=== PATIENT | female | born 1950 | race Caucasian/White ===

== ENCOUNTER 2016-07-27 11:01 | Inpatient (IN) | payer MEDICARE, OTHER ==
[2016-07-20 08:22] VITALS: BMI 31.0
[~2016-07-27] VITALS: Ht 149.9 cm; Wt 70.9 kg
[2016-07-27] VITALS (9 sets, daily range): BP systolic 156–195; BP diastolic 77–85; PULSE 58–74; TEMP 36.4–36.8; O2SAT 93–99; Ht 149.9 cm; Wt 70.9 kg
--- NOTE | 2016-07-27 07:32 | History & Physical Bridge Note ---
H&P Re-Evaluation Bridge Note: I have examined the patient, reviewed the History & Physical and in the interval since the performance of the History & Physical I have noted the following changes of clinical significance: No changes noted
--- NOTE | 2016-07-27 07:33 | History and Physical ---
History & Physical Date Jul 27, 2016. Chief Complaint back and leg pain History of Present Illness The patient is a 65 year old female with complaints of Additional History Hepatic Disease: No Endocrine Disorder: No Kidney Disease: No Hypertension: No Heart Disease: No Bleeding Tendencies: No Infectious Diseases: No Allergies Coded Allergies: Adhesives (Unverified Allergy, Unknown, REDNESS, 07/20/16) Aspirin (Unverified Allergy, Unknown, GI UPSET, 07/20/16) Caffeine (Unverified Allergy, Unknown, FLYING PILI HIGH, 07/20/16) Codeine (Unverified Allergy, Unknown, MILD NAUSEA FUNNY FEELING, 07/20/16) Corticosteroids (Unverified Allergy, Unknown, DIZZY, NAUSEA AND VOMITING, 07/20/16) Indomethacin (Unverified Allergy, Unknown, NAUSE AND VOMITING, 07/20/16) Iodinated Diagnostic Agents (Unverified Allergy, Unknown, FACIAL HIVES AND MILD SWELLING, 07/20/16) Metformin (Unverified Allergy, Unknown, DIARRHEA, 07/20/16) NSAIDs (Verified Allergy, Unknown, GI upset, 07/20/16) Nitrofurantoin (Unverified Allergy, Unknown, RASH, 07/20/16) Sulfa Antibiotics (Unverified Allergy, Unknown, UNKNOWN, 07/20/16) Home Medications Scheduled Clobetasol Propionate (Clobetasol Propionate), 1 APPLN TOP BID Cyanocobalamin (Vitamin B12 500MCG), 1,000 MCG PO QAM Levothyroxine Sodium (Levothyroxine Sodium), 1 TAB PO QAM Lisinopril (Zestril), 20 MG PO QAM Lisinopril (Prinivil), 10 MG PO QPM Metoprolol Succ (Toprol Xl) (Toprol-Xl ), 100 MG PO QAM Pantoprazole (Protonix), 40 MG PO QAM Vitamin E (Vitamin E), 400 UNITS PO BID [Estradiol], 1 DOSE TOP WKLY Scheduled PRN Fluticasone Propionate (Nasal) (Flonase Allergy Relief), 1 SPRAY KALEIGH BID PRN for PRN Tramadol (Ultram), 50 MG PO Q6H PRN for RN Triamcinolone Acet (Triamcinolone Acetonide), 1 APPLN TOP DAILY PRN for RN Physical Examination Skin: warm/dry, no rash Eyes: normal inspection, EOMI, sclerae normal ENT: normal ENT inspection, pharynx normal Head: normocephalic, atraumatic Neck: supple, no adenopathy, trachea midline Respiratory/Chest: lungs clear, normal breath sounds, no respiratory distress Cardiovascular: regular rate, rhythm, no edema, no murmur Abdomen / GI: normal bowel sounds, non tender Back: normal inspection Extremities: normal inspection, normal range of motion Neurologic/Psych: no motor/sensory deficits, alert, normal reflexes, oriented x 3 Diagnosis spinal stenosis Plan of Treatment decompression fusion L2-S1
[~2016-07-27 11:01] MED LIST: CEFAZOLIN 1000MG/55 ML D5W IV SCH; CLBPO15 TOP; CYAN500T13 PO; DC PCA ONE; ESTRADIOL TOP; FLUT0.15 NAE; LACTATED RINGER'S 1000ML 1,000 ML IV SCH; LEVO75TA5 PO; LISI-725 PO; LISI10TA PO; METO1TAB69 PO; PANT1TAB48 PO; TRAM-10 PO; TRMCR515 TOP; VITA1TAB4 PO
[2016-07-27] MEDS ORDERED: MIDAZOLAM HCL 1 MG/ML 2ML VIAL ONE (11:07)
[2016-07-27] MEDS ORDERED: FENTANYL CITRATE INJ 50 MCG/1 ML 2 ML VIAL ONE ×2 (11:07)
[2016-07-27] MEDS ORDERED: LARYING-O-JET KIT (LTA) EXT ONE ×2 (11:19)
[2016-07-27] MEDS ORDERED: ROCURONIUM BROMIDE 10 MG/ML 5 ML VIAL ONE ×2 (11:19→16:22)
[2016-07-27] MEDS ORDERED: DEXAMETHASONE SOD INJ 4 MG/ML VIAL ONE (11:19)
[2016-07-27] MEDS ORDERED: LIDOCAINE HCL 2% 2 ML VIAL (20MG/ML) ONE (11:19)
[2016-07-27] MEDS ORDERED: PROPOFOL IV EMULSION 10 MG/ML 20 ML VIAL IV ONE (11:19)
[2016-07-27] MEDS ORDERED: GLYCOPYRROLATE INJ 0.2 MG/ML VIAL ONE (11:19)
[2016-07-27] MEDS ORDERED: NEOSTIGMINE METHYLSULFATE 1 MG/ML 10ML VIAL ONE (11:19)
[2016-07-27] MEDS ORDERED: ONDANSETRON INJ 2 MG/ML 2 ML VIAL ONE (11:19)
[2016-07-27] MEDS ORDERED: MoRPHine SULFATE 10 MG/ML CARP/VIAL IV PRN (13:30)
[2016-07-27] MEDS ORDERED: ATROPINE SULFATE 0.1 MG/ML 5ML SYR IV PRN (13:30)
[2016-07-27] MEDS ORDERED: FENTANYL CITRATE INJ 50 MCG/1 ML 2 ML VIAL IV PRN (13:30)
[2016-07-27] MEDS ORDERED: ONDANSETRON INJ 2 MG/ML 2 ML VIAL IV PRN ×2 (13:30→17:30)
[2016-07-27] MEDS ORDERED: EpHEDrine SULFATE INJ 50 MG/ML AMP IV PRN (13:30)
[2016-07-27] MEDS ORDERED: BACITRACIN 50000 UNIT VIAL ONE (15:32)
[2016-07-27] MEDS ORDERED: BUPIVACAINE/EPINEPHRINE 0.5% MPF 1:200,000 30 ML VIAL ONE (15:43)
[2016-07-27] MEDS ORDERED: HYDROmorphone INJ 2 MG/ML SYR/VIAL ONE (16:17)
[2016-07-27] MEDS ORDERED: EpHEDrine SULFATE 50MG/5ML SYR ONE (16:47)
[2016-07-27] MEDS ORDERED: FLOSEAL HEMOSTATIC MATRIX 10ML TOP ONE (17:20)
[2016-07-27] MEDS ORDERED: BACITRACIN 50000 UNIT VIAL IR ONE (17:20)
[2016-07-27] MEDS ORDERED: BUPIVACAINE/EPINEPHRINE 0.5% MPF 1:200,000 30 ML VIAL INJ ONE (17:20)
[2016-07-27] MEDS ORDERED: DURASEAL DURAL SEALANT 5ML TOP ONE (17:25)
[2016-07-27] MEDS ORDERED: LACTATED RINGER'S 1000ML 1,000 ML IV SCH (17:28)
[2016-07-27] MEDS ORDERED: SODIUM CHLORIDE 0.9% 1000ML 1,000 ML IV SCH (17:28)
--- NOTE | 2016-07-27 17:28 | [facility] Post Operative Brief Note ---
Immediate Operative Summary Operative Date Jul 27, 2016. Pre-Operative Diagnosis Spinal Stenosis Post-Operative Diagnosis Spinal Stenosis Procedure(s) Performed tlif Surgeon Dr. Javier Marin Video Game Script Writer Surgeon(s) Sierra Krishnamurthy PA-C Estimated Blood Loss 160 Findings hnp/stenosis Specimens None per surgeon
[2016-07-27] MEDS ORDERED: ALUMINUM/MAGNESIUM SUSP 30 ML UDC PO PRN (17:30)
[2016-07-27] MEDS ORDERED: HYDROmorphone INJ 1 MG/ML SYR IV PRN (17:30)
[2016-07-27] MEDS ORDERED: DO NOT ADMINISTER FLU VACCINE PRN ×3 (17:30)
[2016-07-27] MEDS ORDERED: MAGNESIUM HYDROXIDE SUSP 30 ML UDC PO PRN (17:30)
[2016-07-27] MEDS ORDERED: METOCLOPRAMIDE HCL INJ 5 MG/ML 2 ML VIAL IV PRN (17:30)
[2016-07-27] MEDS ORDERED: BISACODYL 10 MG SUPP PR PRN (17:30)
[2016-07-27] MEDS ORDERED: hydrOXYzine HCL 25 MG TAB PO PRN (17:30)
[2016-07-27] MEDS ORDERED: PROMETHAZINE HCL INJ 12.5 MG in SODIUM CHLORIDE 0.9% 50ML 50 ML IV PRN (17:30)
[2016-07-27] MEDS ORDERED: FLUTICASONE PROPIONATE NA SPR 16 GM BTL NAE PRN (17:30)
[2016-07-27] MEDS ORDERED: SOD PHOSPHATE/SOD BIPHOSPHATE ENEMA 132 ML BTL PR PRN (17:30)
[2016-07-27] MEDS ORDERED: DO NOT ADMINISTER PNEUMOCOCCAL VACCINE PRN ×2 (17:30)
[2016-07-27] MEDS ORDERED: ACETAMINOPHEN 500 MG TAB PO PRN (17:30)
[2016-07-27] MEDS ORDERED: LORAZEPAM INJ 0.5 MG in SYRINGE 0 ML IV PRN (17:30)
[2016-07-27] MEDS ORDERED: ACETAMINOPHEN IV 100 ML IV PRN (17:30)
[2016-07-27] MEDS ORDERED: LORAZEPAM 0.5 MG TAB PO PRN (17:30)
[2016-07-27] MEDS ORDERED: FAMOTIDINE 20 MG TAB PO PRN (17:30)
[2016-07-27] MEDS ORDERED: NALOXONE HCL 0.4 MG/1 ML VIAL/CARP IV PRN ×2 (17:30)
--- NOTE | 2016-07-27 17:45 | DIAGNOSTIC IMAGING REPORT ---
Intraoperative lumbar spine 2 views CLINICAL HISTORY: L5-S1 DECOMPRESSION/FUSION/INTERBODY COMPARISON STUDY: No previous studies for comparison. FINDINGS: There is a possible transitional vertebra present. Accurate numbering is not possible without a more complete spine series. There are postsurgical changes at the L4-5 or L5-S1 level. There is evidence of discectomy with interbody fusion. There is posterior pedicle screw fixation. 2 intraoperative fluoroscopic spot images were acquired. 16 seconds of fluoroscopic time was utilized. IMPRESSION: Intraoperative fluoroscopic spot images performed during a discectomy and interbody fusion Electronically signed by: Fercho Dumont M.D. 07/27/2016 5:43 PM Dictated Date/Time: 07/27/2016 5:41 PM
[2016-07-27] MEDS: HYDROmorphone HCL 0.5MG/ML 50 ML CASSETTE IV PRN ×3 (17:56→23:00)
--- NOTE | 2016-07-27 18:11 | Anesthesiology Progress Note ---
Anesthesia Post Op Note Date & Time Jul 27, 2016 at 18:10 Vital Signs Pain Intensity: 0 Vital Signs Past 12 Hours Date Time Temp Pulse Resp B/P Pulse Ox O2 Delivery O2 Flow Rate FiO2 07/27/16 17:55 70 12 141/72 97 Mask 10 07/27/16 17:47 37.4 77 16 160/75 98 Mask 10 07/27/16 11:43 97 Room Air 07/27/16 11:34 36.6 62 18 188/83 97 Room Air Notes Mental Status: alert / awake / arousable, participated in evaluation Pt Amnestic to Procedure: Yes Nausea / Vomiting: adequately controlled Pain: adequately controlled Airway Patency, RR, SpO2: stable & adequate BP & HR: stable & adequate Hydration State: stable & adequate Anesthetic Complications: no major complications apparent Pt doing well.
[2016-07-27] MEDS ORDERED: LABETALOL HCL IV 5 MG/ML 20ML ONE (18:24)
[2016-07-27] MEDS: LISINOPRIL 10 MG TAB PO SCH (21:11)
[2016-07-27] MEDS: DOCUSATE SODIUM/SENNA 50/8.6MG TAB PO SCH (21:11)
[2016-07-27] MEDS ORDERED: INFLUENZA VIRUS QUAD VACCINE 0.5 ML SYR IM. ONE (22:00)
[2016-07-27] MEDS ORDERED: PNEUMOCOCCAL ADMINISTRATION CHARGE ONE (22:00)
[2016-07-27] MEDS ORDERED: INFLUENZA ADMINISTRATION CHARGE ONE (22:00)
[2016-07-27] MEDS ORDERED: PNEUMOCOCCAL POLYSACCHARIDES 25 MCG/0.5 ML VIAL/SYR IM. ONE (22:00)
--- NOTE | 2016-07-27 22:42 | OPERATIVE REPORT ---
DATE OF OPERATION: 07/27/2016 PREOPERATIVE DIAGNOSIS: Herniated nucleus pulposus, spinal stenosis L5-S1. POSTOPERATIVE DIAGNOSIS: Same. Please note she does have lumbaralized S1 sacrum and for number purposes, we did describe the area of disk herniation disk space collapse as L5-S1. PROCEDURE PERFORMED: 1. Lumbar decompression and medial facetectomy and foraminotomy L5-S1. 2. Posterior spinal fusion L5-S1. 3. Placement posterior instrumentation using Orthros rods and screws, L5-S1. 4. Interbody fusion L5-S1. 5. Placement of PEEK cage 8 x 22 at L5-S1. 6. Placement of locally harvested morcellized autograft in posterior gutters. 7. Placement of Infuse collagen sponge and Mastergraft the posterior gutters and Lily bone grafting in interbody space. SURGEON: Dr. Javier Marin. CHICKEN SEXER: Due to the complex nature of the procedure, the entire surgery was performed with the fish hatchery assistant of Sierra Reyez PA-C. The legislative assistant, under direct supervision, was involved in the actual performance of all aspects of the surgical procedure including hemostasis, tissue retraction and incision, instrument management, patient positioning, and wound closure. ANESTHESIA: General. DISPOSITION: The patient awakened and taken to PACU in stable condition. HISTORY OF PATIENT'S PROBLEMS: This is a 65-year-old female that presents with above-mentioned diagnosis. After failing an extensive course of nonoperative care, elected to undergo the above-mentioned procedure. Risks, benefits, pros, cons, and alternatives were outlined in detail preoperatively. DESCRIPTION OF PROCEDURE: The patient was met with preoperatively, case discussed and all questions were addressed. At that point the patient was taken back to the operative suite and after undergoing successful general endotracheal intubation via department of anesthesia was placed in prone position on the Joe table atop Hayden frame. All bony prominences were well padded and the eyes were inspected to ensure there was no external pressure placed upon them. At this point, lumbar spine was prepped and draped in normal sterile fashion. Sharp dissection with the assistance of Bovie cautery performed down to and exposing the lamina and transverse processes of L5 and sacral ala bilaterally. From a caudal to cephalad fashion, complete laminectomy of L5 was performed, partial laminectomy of L4 addressing significant lateral recess stenosis. The severe foraminal disease at L5 level on the right as well as a very large disk herniation L5-S1 on the right that was adhered directly to the traversing S1 nerve root. After complete decompression, pedicle screws were then placed in L5 and S1 levels bilaterally with assistance of fluoroscopy and appropriate size allison provisionally placed. Through a transforaminal approach on the right, a complete diskectomy of L5-S1 was performed, endplates curetted to subcortical bleeding bone and an 8 x 22 mm PEEK cage filled with Lily bone grafting tapped into position. Rods were then locked into final position bilaterally and transverse processes of L5 and sacral ala burred to subcortical bone. Infuse collagen sponge combined with Mastergraft and locally harvested morcellized autograft was placed in the posterior gutters. Prior to formal closing, I did place a few mL of DuraSeal in the TLIF location secondary to the significant scarring of the root to ensure there is no leak, though none was appreciated intraoperatively. A 7 flat RIK drain was inserted. Incision was closed with 1-0 Vicryl in the fascia, 2-0 Vicryl subcutaneously, 4-0 Monocryl for final skin closure. Steri-Strips and sterile dressing placed. The patient was awakened and taken to PACU in stable condition. I attest to the content of the Intraoperative Record and any orders documented therein. Any exceptio ns are noted below.
[2016-07-27] MEDS: CEFAZOLIN IV 1,000 MG in DEXTROSE 5% 50ML 50 ML IV SCH (23:50)
[2016-07-28 03:21] VITALS: BP 154/75; PULSE 85; TEMP 36.6; O2SAT 100
[2016-07-28] MEDS ORDERED: DC PCA ONE (06:00)
[2016-07-28] MEDS ORDERED: OXYCODONE HCL IR 5 MG TAB (IMMEDIATE RELEASE) PO PRN (06:00)
[2016-07-28] MEDS: LEVOTHYROXINE 75 MCG TAB PO SCH (06:03)
[2016-07-28] MEDS ORDERED: NURSING DECISION MEDICATION ORDER SCH (06:15)
[2016-07-28 07:18] VITALS: BP 119/68; PULSE 67; TEMP 36.8; O2SAT 98
[2016-07-28 07:36] LABS: HEMATOCRIT 31.6 % (37-47); MEAN CELL VOLUME 94.9 fL (80-100); MEAN CORPUSCULAR HEMOGLOBIN 32.7 pg (25-34); MEAN CORPUSCULAR HGB CONC 34.5 g/dl (32-36); RED BLOOD COUNT 3.33 M/uL (4.2-5.4); WHITE BLOOD COUNT 6.14 K/uL (4.8-10.8)
[2016-07-28 07:51] LABS: BUN/CREATININE RATIO 16.7 (10-20); CALCIUM 8.4 mg/dl (8.5-10.1); CREATININE 0.84 mg/dl (0.60-1.20); POTASSIUM 4.6 mmol/L (3.5-5.1)
[2016-07-28 08:16] LABS: BASO % 0.2 %; BASO ABS # 0.01 K/uL (0-0.2); COMPLETE YES; IG% 0.3 %; LYMPH ABS # 0.55 K/uL (1.2-3.4); MEAN PLATELET VOLUME 10.7 fL (7.4-10.4); MONO % 5.4 %; NEUT % 85.1 %; PLATELET COUNT 86 K/uL (130-400); PLT ESTIMATE DECREASED
[2016-07-28] MEDS: CEFAZOLIN IV 1,000 MG in DEXTROSE 5% 50ML 50 ML IV SCH (08:31)
[2016-07-28] MEDS: LISINOPRIL 20 MG TAB PO SCH (08:32)
[2016-07-28] MEDS: METOPROLOL SUCC 50MG EXT REL TAB PO SCH (08:32)
[2016-07-28] MEDS: PANTOprazole SOD 40 MG TAB PO SCH (08:32)
[2016-07-28] MEDS ORDERED: RXC5 PO (11:01)
--- NOTE | 2016-07-28 11:02 | Discharge Instructions ---
Discharge Instructions Admission Reason for Admission: Lumbar Spinal Stenosis Discharge Discharge Diagnosis / Problem: stenosis Discharge Goals Goal(s): Improve function Activity Recommendations Activity Limitations: per Instructions/Follow-up section . Instructions / Follow-Up Instructions / Follow-Up ACTIVITY RECOMMENDATIONS: SELF CARE INSTRUCTIONS AFTER CERVICAL FUSIONS 1. No smoking. Smoking drastically decreases the chance of a solid fusion. 2. No bending, lifting more than 5 pounds, or twisting (roll like a log when turning in bed). 3. You may shower 3 days after surgery. Thoroughly dry wound. Do not soak in the tub. 4. Cervical collar: Must be worn at all times including sleeping. You may remove the brace only to bath, eat and if you are sitting in a recliner. 5. Please walk as much as you can for exercise. Gradually increase the distance that you walk as your endurance increases. SPECIAL CARE INSTRUCTIONS: VERY IMPORTANT TO READ AND REVIEW A. Do not take any anti-inflammatory medications (i.e. Indocin, Advil, Aspirin, Naprosyn, Aleve, Motrin, etc.) as these may inhibit the chance of a solid fusion. Tylenol is okay to take. B. Your surgical incision has been closed with a cosmetic suture under the skin that will dissolve in about 6 weeks. In 14 days, you can use a pair of clean scissors and cut the suture that is left outside of the skin at the ends of your incision. C. Complications are uncommon, but please contact us if you have any signs or symptoms of: 1. wound infection (fever higher than 102.5 degrees F, redness, separation of wound, drainage, or increasing pain from the incision) 2. blood clots in legs (pain, swelling, redness and warmth in legs) 3. urinary tract infection (fever higher than 102.5 degrees, burning upon urination or increased frequency of urination) 4. nerve problems (inability to walk on your toes or heels, numbness, loss of bowel or bladder control) 5. any other symptoms that concern you. D. Please call the office at if you have any concerns or questions about your operation or recovery. MANAGING PAIN AFTER SPINAL SURGERY 1. Narcotic medication is intended for short-term use and will be provided for surgical pain. Surgical pain usually lasts for a period of 4-6 weeks. Narcotic medication includes Percocet, Vicodin, Darvocet, Tylenol #3 or Lortab. 2. Longer-term pain is more appropriately treated with non-narcotic medication such as Tylenol ES. 3. Muscle spasm is not appropriately treated with narcotics. Muscle relaxers such as Soma, Flexeril or Skelaxin can be used along with Tylenol ES. 4. Remember that we all live with some "aches and pains". This is not unusual or uncommon after an injury or as we get older. 5. We will provide appropriate medication within the normal guidelines of their prescribed use. We will also be very cautious and aware of potential abuse and extended duration of patients' medication needs. 6. Please allow 2-3 days to process refills. Prescriptions will not be mailed but must be picked up at the office. FOLLOW UP VISIT: Keep your scheduled follow-up appointment. Any questions, please call the office at . Current Hospital Diet Patient's current hospital diet: Regular Diet Discharge Diet Recommended Diet: Regular Diet Procedures Procedures Performed: L5-S1 Lumbar Laminectomy, Decompression, Pedicle Screw Fixation, Placement of Interbody Device, Posterolateral Fusion, Application Allograft, Bone Morphognetic Protein Pending Studies Studies pending at discharge: no Medical Emergencies . Who to Call and When: Medical Emergencies: If at any time you feel your situation is an emergency, please call 911 immediately. . Non-Emergent Contact Non-Emergency issues call your: Primary Care Provider . "Provider Documentation" section prepared by Javier Marin. VTE Core Measure Inpt VTE Proph given/why not?: Filemon Nunez, SCD's
--- NOTE | 2016-07-28 11:26 | PROGRESS NOTE ---
DATE: 07/28/2016 DATE: 07/28/2016. SUBJECTIVE: Postop day 1. Back pain is controlled. Leg pain improved. Vital signs stable. T-max 36.8. RIK drained 110 mL. Hematocrit this a.m. is 31.6. OBJECTIVE: On exam the patient is in chair at bedside. Demonstrates good strength to testing. ASSESSMENT: Status post lumbar decompression and fusion. PLAN: At this time, will continue with light activity today. We will assess her tomorrow and most likely initiate physical therapy.
[2016-07-28 11:30] VITALS: BP 144/72; PULSE 68; TEMP 36.5; O2SAT 96
[2016-07-28 15:26] VITALS: BP 150/66; PULSE 66; TEMP 36.8; O2SAT 100
[2016-07-28] MEDS: TRAMADOL HCL 50 MG TAB PO PRN ×2 (15:55→22:23)
[2016-07-28] MEDS: DOCUSATE SODIUM/SENNA 50/8.6MG TAB PO SCH (21:11)
[2016-07-28] MEDS: LISINOPRIL 10 MG TAB PO SCH (21:12)
[2016-07-28 23:00] VITALS: BP 149/71; PULSE 79; TEMP 36.9; O2SAT 96
[2016-07-29] MEDS: TRAMADOL HCL 50 MG TAB PO PRN (05:23)
[2016-07-29] MEDS: LEVOTHYROXINE 75 MCG TAB PO SCH (05:23)
[2016-07-29] MEDS: POLYETHYLENE (MIRALAX) 17 GM PACK PO SCH ×2 (05:24→12:00)
[2016-07-29 07:00] VITALS: BP 128/64; PULSE 74; TEMP 37; O2SAT 96
[2016-07-29] MEDS: PANTOprazole SOD 40 MG TAB PO SCH (08:46)
[2016-07-29] MEDS: LISINOPRIL 20 MG TAB PO SCH (08:46)
[2016-07-29] MEDS: METOPROLOL SUCC 50MG EXT REL TAB PO SCH (08:47)
[2016-07-29] MEDS ORDERED: NURSING VERBAL MED ORDER ONE (09:45)
[2016-07-29] MEDS ORDERED: TRAMADOL HCL 50 MG TAB PO PRN (10:00)
[2016-07-29] MEDS ORDERED: NURSING DECISION MEDICATION ORDER SCH (12:45)
[2016-07-29 13:33] VITALS: BP 128/64; PULSE 74; TEMP 37; O2SAT 96
--- NOTE | 2016-07-29 13:37 | DISCHARGE SUMMARY ---
PRINCIPAL DIAGNOSIS: Spinal stenosis. HOSPITAL COURSE FOLLOWS: On 07/27/2016 patient underwent lumbar decompression and fusion, tolerated this well and taken to the orthopedic floor postoperatively. Postop day #1 she was up and ambulatory. Leg pain markedly improved and progressed to postop day #2. RIK drain decreasing appropriately, pain well controlled. Subsequently discharged home. Discharge orders and instructions found on the chart for further review.
== END 2016-07-29 14:29 | disposition home or self-care (01) | DRG 460 ==
LOC: ENRESERVDT → ENRESERVTM → C.ACU 11:01 → C.3E 13:30
PROVIDERS: ADMIT Orthopaedic Surgery Orthopaedic Surgery of the Spine; ATTEND Orthopaedic Surgery Orthopaedic Surgery of the Spine
PROC: 0SG3071 Fusion of Lumbosacral Joint with Autologous Tissue Substitute, Posterior Approach, Posterior Column, Open Approach (ICD-10-PCS; principal; 2016-07-27 12:30)
PROC: 01NR0ZZ Release Sacral Nerve, Open Approach (ICD-10-PCS; principal; 2016-07-27 12:30)
PROC: 0SG30AJ Fusion of Lumbosacral Joint with Interbody Fusion Device, Posterior Approach, Anterior Column, Open Approach (ICD-10-PCS; principal; 2016-07-27 12:30)
PROC: 3E0U0GB Introduction of Recombinant Bone Morphogenetic Protein into Joints, Open Approach (ICD-10-PCS; principal; 2016-07-27 12:30)
DX: M48.07 Spinal stenosis, lumbosacral region (principal); M51.17 Intervertebral disc disorders with radiculopathy, lumbosacral region; Z88.1 Allergy status to other antibiotic agents; Z88.2 Allergy status to sulfonamides; Z88.5 Allergy status to narcotic agent; Z88.6 Allergy status to analgesic agent; Z88.8 Allergy status to other drugs, medicaments and biological substances; Z91.041 Radiographic dye allergy status; Z79.890 Hormone replacement therapy; Z79.899 Other long term (current) drug therapy; K21.9 Gastro-esophageal reflux disease without esophagitis; I10 Essential (primary) hypertension; E03.9 Hypothyroidism, unspecified